=== PATIENT | female | born 1945 ===

== ENCOUNTER 2021-11-05 17:32 | Inpatient (IN) | payer OTHER ==
[~2021-11-05] VITALS: Ht 149.9 cm; Wt 129.7 kg
[2021-11-11] MEDS ORDERED: TOPROL XL25 M1 (11:18)
[2021-11-16] MEDS ORDERED: SYNTHROID150 MCG (11:26)
[2021-11-16] MEDS ORDERED: ST. JOSEPH ASPI81 M2 (11:26)
[2021-11-16] MEDS ORDERED: OMEPRAZOLE20 MG (11:26)
[2021-11-16] MEDS ORDERED: DICLOFENAC SOD100 GM (11:26)
[2021-11-16] MEDS ORDERED: FLONASE16 GM (11:27)
[2021-11-16] MEDS ORDERED: RAMIPRIL2.5 MG (11:27)
[2021-11-16] MEDS ORDERED: REFRESH OPTIVE1 EACH (11:27)
[2021-11-16] MEDS ORDERED: MELOXICAM15 MG (11:27)
[2021-11-16] MEDS ORDERED: LOPRESSOR25 MG (11:27)
[2021-11-16] MEDS ORDERED: ATORVASTATIN CA10 MG (11:27)
[2021-11-16] MEDS ORDERED: PROAIR HFA8.5 GM (11:27)
[2021-11-16] MEDS ORDERED: OXYBUTYNIN CHLO10 MG (11:27)
[2021-11-16] MEDS ORDERED: LIDOCAINE1 EACH (11:27)
[2021-11-16] MEDS ORDERED: FENOFIBRATE145 MG (11:27)
[2021-11-18] MEDS ORDERED: CEFADROXIL500 MG PO (15:17)
[2021-11-18] MEDS ORDERED: ELIQUIS2.5 MG PO (15:17)
[2021-11-18] MEDS ORDERED: PERCOCET 5-3251 EACH PO (15:17)
== END 2021-11-18 17:09 | DRG 470 ==
LOC: SURG 11-16 05:00 → O/R 11-16 05:00 → SURG 11-16 08:15
PROVIDERS: ADMIT Orthopaedic Surgery; ATTEND Orthopaedic Surgery
PROC: 0SRD0J9 Replacement of Left Knee Joint with Synthetic Substitute, Cemented, Open Approach (ICD-10-PCS; principal; 2021-11-16 10:00)
DX: M17.12 Unilateral primary osteoarthritis, left knee (principal); D62 Acute posthemorrhagic anemia; M22.12 Recurrent subluxation of patella, left knee; I10 Essential (primary) hypertension; E03.9 Hypothyroidism, unspecified; G47.33 Obstructive sleep apnea (adult) (pediatric); Z20.822 Contact with and (suspected) exposure to COVID-19